=== PATIENT | male | born 1995 | race Hispanic/Latino ===

== ENCOUNTER 2017-10-05 19:42 | Emergency (ER) | payer OTHER, SELFPAY ==
--- NOTE | 2017-10-05 21:00 | RAD ---
THREE VIEWS OF THE RIGHT FOOT: 10/05/17 INDICATION: History of right foot injury with increased pain and mobility complications. FINDINGS: No acute fracture or subluxation is evident. Enthesopathic changes seen off the calcaneus. Accessory ossicle changes to the cuboid and navicular. IMPRESSION: No acute osseous abnormality. POS: [facility]
[2017-10-05] MEDS ORDERED: HYDROcodone/Acetaminophen 5/325 mg Tablet ONE (21:47)
[2017-10-05] MEDS ORDERED: Ibuprofen 800 MG TAB ONE (21:47)
== END 2017-10-05 22:05 | disposition home or self-care (01) ==
LOC: ERS 19:42
DX: S90.31XA Contusion of right foot, initial encounter (principal); I10 Essential (primary) hypertension; W20.8XXA Other cause of strike by thrown, projected or falling object, initial encounter

== ENCOUNTER 2017-12-02 09:25 | Emergency (ER) | payer SELFPAY ==
[2017-12-02] MEDS ORDERED: Cyclobenzaprine 10 MG TAB ONE (09:37)
[2017-12-02] MEDS ORDERED: HYDROcodone/Acetaminophen 5/325 mg Tablet ONE (09:37)
== END 2017-12-02 09:34 | disposition home or self-care (01) ==
LOC: ERS 09:25
DX: S39.012A Strain of muscle, fascia and tendon of lower back, initial encounter (principal); I10 Essential (primary) hypertension; X50.9XXA Other and unspecified overexertion or strenuous movements or postures, initial encounter
CPT/HCPCS: 99283